=== PATIENT | female | born 1940 | race Caucasian/White ===

== ENCOUNTER 2017-05-30 09:44 | Emergency (ER) | payer MEDICARE, BC ==
[2017-05-30] MEDS ORDERED: TORAdol 30 mg Injection IV ONE (10:12)
[2017-05-30] MEDS ORDERED: VALIUM 10 MG/2 ML SYRINGE IV ONE (10:13)
--- NOTE | 2017-05-30 10:22 | ERPHSYRPT ---
- History of Present Illness Time Seen by Provider: 05/30/17 10:01 Source: patient Exam Limitations: no limitations Patient Subjective Stated Complaint: pt arrived per ambulance for chronic lower back. no injury, she got steriod shot wed, and states has not helped. Triage Nursing Assessment: pt alert, skin w/d/p,moaning out in pain when moves. resp easy. Physician History: Pt has been treated with chronic low back pain for years. She goes to a chiropractor and pain clinic as well. She fell in March, aggravated her chronic back pain. She was seen by her PCP 2 days ago, she was given steroid shots, also received massage treatment by her chiropractor 2 days ago, which made her symptoms worse, up to a point, that she was unable to walk with the pain last night. She also mentioned having pain across her chest off and on for the past weak, denies severe SOB, cough, fever, nausea, diaphoresis other complaints. She lives alone, her data warehouse developer visited her today, and called 911. Timing/Duration: constant, gradual onset Method of Injury: other (denies) Quality: sharp Back Pain Location: lumbar spine Severity of Pain-Max: severe Severity of Pain-Current: severe Modifying Factors: Improves With: movement Associated Symptoms: urinary incontinence, problems urinating, other (chronic mild leaking, no recent changes), No fever, No loss of bowel control, No constipation, No vomiting Previous symptoms: same symptoms as today, recently treated Allergies/Adverse Reactions: pregabalin [From Lyrica] Allergy (Severe, Verified 05/30/17 09:55) Difficulty Breathing states "out of it,like crazy" hydrocodone bitartrate [From Vicodin] Adverse Reaction (Mild, Verified 05/30/17 09:55) constipation Home Medications: Alendronate Sodium 70 mg [Fosamax 70 MG] 70 mg PO WEEKLY 05/15/15 [History ] Alprazolam [Alprazolam Odt] 0.5 mg PO DAILY 05/15/15 [History] Amiodarone HCl 200 mg PO DAILY 05/15/15 [History] Aspirin 81 gm Chew [Baby Aspirin 81 mg Chew] 81 mg PO DAILY 05/15/15 [ History] Calcium Carbonate/Vitamin D3 [Calcium 250+D Tablet] 1 ea PO DAILY 05/15/15 [ History] Cetirizine HCl [Zyrtec] 10 mg PO DAILY 05/15/15 [History] Clotrimazole [Clotrimazole 3] 1 ea TOP Q12H PRN PRN 05/15/15 [History] Esomeprazole Magnesium [Nexium] 40 mg PO DAILY 05/15/15 [History] Hydrocortisone/Iodoquinol/Aloe [Opnesdxgh-Oaxfadffww-Omat Sach] 1 ea TOP Q12H PRN PRN 05/15/15 [History] Multivitamin [Daily Multivitamin] 1 ea PO DAILY 05/15/15 [History] Omeprazole 20 MG [Prilosec 20 mg] 20 mg PO DAILY 05/15/15 [History] Pravastatin Sodium [Pravachol] 40 mg PO DAILY 05/15/15 [History] Vit A/Vit C/Vit E/Zinc/Copper [Preservision Areds Softgel] 1 ea PO BID 05/15/15 [History] Diltiazem HCl [Diltiazem ER] 100 mg PO DAILY 06/05/15 [History] Fluticasone Propionate [Flonase NASAL] 2 sprays IN DAILY 06/05/15 [History ] Mv-Mn/Iron/Folic Acid/Herb 190 [Vitamin D3 Complete Caplet] 2,000 mg PO DAILY [History] Sennosides [Senna Laxative] 1 tab PO DAILY 06/05/15 [History] Hx Influenza Vaccination/Date Given: Yes Hx Pneumococcal Vaccination/Date Given: Yes - Review of Systems Constitutional: No Symptoms Respiratory: No Cough, No Dyspnea Cardiac: Chest Pain, No Edema Abdominal/Gastrointestinal: No Symptoms Genitourinary Symptoms: Incontinence, Other (chronic, mild incontinance, wears depends) Musculoskeletal: Back Pain All Other Systems: Reviewed and Negative - Past Medical History Pertinent Past Medical History: No Neurological History: No Pertinent History ENT History: No Pertinent History Cardiac History: Other (atrial fibrillation, not on blood thinner) Respiratory History: Other Endocrine Medical History: No Pertinent History Musculoskeletal History: Arthritis, Degenerative Disk Disease GI Medical History: Irritable Bowel, Polyps History: Other Psycho-Social History: No Pertinent History Female Reproductive Disorders: No Pertinent History Other Medical History: states allergies,"over the counter stuff for that", states A-fib"States arthritis" - Past Surgical History Past Surgical History: Yes Neuro Surgical History: No Pertinent History Cardiac: Cardiac Catheterization Respiratory: No Pertinent History Gastrointestinal: Other Genitourinary: No Pertinent History Musculoskeletal: Orthopedic Surgery Female Surgical History: Hysterectomy Other Surgical History: derrek ankle fx, each with hdwe placed, colonoscopy with polypectomy, left knee replacement - Social History Smoking Status: Never smoker Exposure to second hand smoke: No Drug Use: none Patient Lives Alone: Yes - Female History Hx Last Menstrual Period: post Hx Now: No - Nursing Vital Signs Nursing Vital Signs: Initial Vital Signs Temperature 97.2 F 05/30/17 09:48 Pulse Rate 70 05/30/17 09:48 Respiratory Rate 18 05/30/17 09:48 Blood Pressure 180/83 05/30/17 09:48 O2 Sat by Pulse Oximetry 98 05/30/17 09:48 Pain Scale Pain Intensity [Back] 10 Pain Intensity 5 - Physical Exam General Appearance: no apparent distress Eye Exam: eyes nml inspection Ears, Nose, Throat Exam: normal ENT inspection Neck Exam: normal inspection, non-tender, supple Respiratory Exam: normal breath sounds, lungs clear, airway intact, No chest tenderness, No respiratory distress Cardiovascular Exam: regular rate/rhythm, normal heart sounds, normal peripheral pulses, No murmur Gastrointestinal Exam: soft, normal bowel sounds, No tenderness, No distention, No mass, No ecchymosis Back Exam: normal inspection, decreased range of motion, muscle spasm, other ( diffuse bilateral muscular tenderness, and spasms, more severe on the right side , staright leg rising negative bilat.), No CVA tenderness, No vertebral tenderness, No rash Extremity Exam: normal inspection, No calf tenderness Peripheral Pulses: dorsalis-pedis (R): 3+, dorsalis-pedis (L): 3+ Neurologic Exam: alert, oriented x 3, cooperative, normal mood/affect, abnormal gait, other (normal, equal reflexes), No motor deficits, No motor weakness Skin Exam: normal color, warm, dry, No rash Lymphatic Exam: No adenopathy SpO2 Interpretation: normal SpO2: 98 Oxygen Delivery: Room Air - Course Nursing assessment & vital signs reviewed: Yes EKG Interpreted by Me: RATE, Sinus Rhythm, NORMAL AXIS, Non-specific ST Changes - Radiology Exams Chest X-ray Interpretation: Reviewed by me, Other (new left base infiltrate/ atelectasis/effusion) L-Spine X-ray Interpretation: Reviewed by me, No Fracture, Other (remote appearing T11 and L3 endplate fractures, osteopenia, scoliosis, multilevel spondylosis) - CT Exams Chest CT Interpretation: Negative, Tele-radiologist Report, No PE, Other (scattered fibrosis,/scarring and left base compressive atelectasis secondary to hemidiaphragm elevation, remote T11 compression) Ordered Tests: Active Orders 24 hr Category Date Time Status Lending Consultant STAT Care 05/30/17 10:11 Active Clean Catch Urine Specimen STAT Care 05/30/17 10:12 Active EKG-ER Only STAT Care 05/30/17 10:10 Active IV Insertion STAT Care 05/30/17 10:10 Active Oxygen-ED Only VENTI-MASK 28% Care 05/30/17 10:10 Active Regular Diet Diet 05/30/17 Dinner Active CHEST 1 VIEW (PORTABLE) Stat Exams 05/30/17 10:11 Completed CHEST WITH CONTRAST [CT] Stat Exams 05/30/17 11:46 Completed LUMBAR LIMITED (2 OR 3 VIEWS) Stat Exams 05/30/17 10:12 Completed CBC W DIFF Stat Lab 05/30/17 10:30 Completed CK-Creatinine Phosphokinase Stat Lab 05/30/17 10:30 Completed CMP Stat Lab 05/30/17 10:30 Completed CULTURE,URINE Stat Lab 05/30/17 10:12 Received D-DIMER QUANTITATION Stat Lab 05/30/17 11:15 Completed NT PRO BNP Stat Lab 05/30/17 10:30 Completed PROTIME WITH INR Stat Lab 05/30/17 10:30 Completed PTT Stat Lab 05/30/17 10:30 Completed TROPONIN Q3H Lab 05/30/17 10:30 Completed TROPONIN Q3H Lab 05/30/17 13:15 Received TROPONIN Q3H Lab 05/30/17 16:15 Ordered TROPONIN Q3H Lab 05/30/17 19:15 Ordered TROPONIN Q3H Lab 05/30/17 22:15 Ordered UA W/ MICROSCOPIC Stat Lab 05/30/17 10:12 Completed Medication Summary Discontinued Medications Generic Name Dose Route Start Last Admin Trade Name Freq PRN Reason Stop Dose Admin Diazepam 2.5 mg 05/30/17 10:13 05/30/17 10:58 Valium 10 Mg/2 Ml Syringe IV 04/20/18 10:14 Not Given STAT ONE Ketorolac Tromethamine 30 mg 05/30/17 10:12 05/30/17 10:59 Toradol 30 Mg Injection IV 05/30/17 10:13 30 mg STAT ONE Administration Ketorolac Tromethamine Confirm 05/30/17 10:57 Toradol 30 Mg Injection Administered 05/30/17 10:58 Dose 30 mg .ROUTE .STK-MED ONE Ondansetron HCl 4 mg 05/30/17 12:07 05/30/17 12:12 Zofran 4 Mg/2 Ml Vial IV 05/30/17 12:08 4 mg STAT ONE Administration Ondansetron HCl Confirm 05/30/17 12:11 Zofran 4 Mg/2 Ml Vial Administered 05/30/17 12:12 Dose 4 mg .ROUTE .STK-MED ONE Orphenadrine Citrate 60 mg 05/30/17 10:59 05/30/17 11:01 Norflex 60 Mg/2 Ml IM 05/30/17 11:00 60 mg STAT ONE Administration Orphenadrine Citrate Confirm 05/30/17 10:59 Norflex 60 Mg/2 Ml Administered 05/30/17 11:00 Dose 60 mg .ROUTE .STK-MED ONE Lab/Rad Data: Laboratory Result Diagrams 05/30/17 10:30 05/30/17 10:30 Laboratory Results 05/30/17 05/30/17 05/30/17 Range/Units 11:15 10:30 10:30 WBC (4.0-10.5) K/mm3 RBC (4.1-5.4) M/mm3 Hgb (12.0-16.0) gm/dl Hct (35-47) % MCV (78-100) fl MCH (26-32) pg MCHC (32-36) g/dl RDW (11.5-14.0) % Plt Count (150-450) K/mm3 MPV (6-9.5) fl Gran % (36.0-66.0) % Eos # (Auto) (0-0.5) Absolute Lymphs (auto) (1.0-4.6) Absolute Monos (auto) (0.0-1.3) Lymphocytes % (24.0-44.0) % Monocytes % (0.0-12.0) % Eosinophils % (0.00-5.0) % Basophils % (0.0-0.4) % Absolute Granulocytes (1.4-6.9) Basophils # (0-0.4) PT 10.8 (9.95-12.35) SECONDS INR 0.97 (0.8-3.0) APTT 36.2 (25.3-37.0) SECONDS D-Dimer 1786.69 H* (215-500) ng/mL Sodium (137-145) mmol/L Potassium (3.5-5.1) mmol/L Chloride (98-107) mmol/L Carbon Dioxide (22-30) mmol/L Anion Gap (5-15) MEQ/L BUN (7-17) mg/dL Creatinine (0.52-1.04) mg/dL Estimated GFR ML/MIN Glucose (74-106) mg/dL Calcium (8.4-10.2) mg/dL Total Bilirubin (0.2-1.3) mg/dL AST (14-36) U/L ALT (0-35) U/L Alkaline Phosphatase (38-126) U/L Creatine Kinase (30-135) U/L Troponin I < 0.012 (0.000-0.034) ng/mL NT-Pro-B Natriuret Pep (0-1800) pg/mL Serum Total Protein (6.3-8.2) g/dL Albumin (3.5-5.0) g/dL Ur Collection Type Urine Color (YELLOW) Urine Appearance (CLEAR) Urine pH (5-6) Ur Specific [place] (1.005-1.025) Urine Protein (Negative) Urine Ketones (NEGATIVE) Urine Blood (0-5) Malik/ul Urine Nitrite (NEGATIVE) Urine Bilirubin (NEGATIVE) Urine Urobilinogen (0-1) mg/dL Ur Leukocyte Esterase (NEGATIVE) Urine Microscopic RBC (0-2) /HPF Urine Microscopic WBC (0-5) /HPF Ur Epithelial Cells (FEW) /HPF Urine Bacteria (NEGATIVE) /HPF Urine Culture Reflexed (NO) Urine Glucose (NEGATIVE) mg/dL Specimen Received 05/30/17 05/30/17 05/30/17 Range/Units 10:30 10:30 10:12 WBC 10.9 H (4.0-10.5) K/mm3 RBC 5.31 (4.1-5.4) M/mm3 Hgb 15.6 (12.0-16.0) gm/dl Hct 48.6 H (35-47) % MCV 91.5 (78-100) fl MCH 29.4 (26-32) pg MCHC 32.1 (32-36) g/dl RDW 14.9 H (11.5-14.0) % Plt Count 271 (150-450) K/mm3 MPV 9.6 H (6-9.5) fl Gran % 67.0 H (36.0-66.0) % Eos # (Auto) 0.14 (0-0.5) Absolute Lymphs (auto) 2.04 (1.0-4.6) Absolute Monos (auto) 1.37 H (0.0-1.3) Lymphocytes % 18.8 L (24.0-44.0) % Monocytes % 12.6 H (0.0-12.0) % Eosinophils % 1.3 (0.00-5.0) % Basophils % 0.3 (0.0-0.4) % Absolute Granulocytes 7.29 H (1.4-6.9) Basophils # 0.03 (0-0.4) PT (9.95-12.35) SECONDS INR (0.8-3.0) APTT (25.3-37.0) SECONDS D-Dimer (215-500) ng/mL Sodium 140 (137-145) mmol/L Potassium 5.2 H (3.5-5.1) mmol/L Chloride 103 (98-107) mmol/L Carbon Dioxide 28 (22-30) mmol/L Anion Gap 14.3 (5-15) MEQ/L BUN 29 H (7-17) mg/dL Creatinine 0.93 (0.52-1.04) mg/dL Estimated GFR > 60.0 ML/MIN Glucose 94 (74-106) mg/dL Calcium 9.2 (8.4-10.2) mg/dL Total Bilirubin 1.00 (0.2-1.3) mg/dL AST 53 H (14-36) U/L ALT 27 (0-35) U/L Alkaline Phosphatase 157 H (38-126) U/L Creatine Kinase 70 (30-135) U/L Troponin I (0.000-0.034) ng/mL NT-Pro-B Natriuret Pep 826 (0-1800) pg/mL Serum Total Protein 7.9 (6.3-8.2) g/dL Albumin 4.0 (3.5-5.0) g/dL Ur Collection Type CATH Urine Color LT.YELLOW (YELLOW) Urine Appearance CLOUDY (CLEAR) Urine pH 7.0 (5-6) Ur Specific [place] 1.010 (1.005-1.025) Urine Protein TRACE (Negative) Urine Ketones NEGATIVE (NEGATIVE) Urine Blood LARGE (0-5) Malik/ul Urine Nitrite NEGATIVE (NEGATIVE) Urine Bilirubin NEGATIVE (NEGATIVE) Urine Urobilinogen NORMAL (0-1) mg/dL Ur Leukocyte Esterase MODERATE (NEGATIVE) Urine Microscopic RBC >100 (0-2) /HPF Urine Microscopic WBC 10-15 (0-5) /HPF Ur Epithelial Cells RARE (FEW) /HPF Urine Bacteria MANY (NEGATIVE) /HPF Urine Culture Reflexed YES (NO) Urine Glucose NEGATIVE (NEGATIVE) mg/dL Specimen Received 05/30/17 1110 - Progress Progress: improved Progress Note: 05/30/17 14:18 Pt was informed about all test results, she was advised to be admitted for further treatment and evaluation for rehab. She understood, but declined, she wants to go home, she was seen by medical services manager, and arrangements were made for home rehab. treatment. She understood all risks involved in her decision, she is alert and oriented x4, mentally fully competent to make decisions for herself. She was started on [place] and advised to return if severe pain, vomiting, fever> 102 F, and follow up with her doctor next week. - Departure Time of Disposition: 14:21 Departure Disposition: AMA Clinical Impression: Back pain of lumbar region with sciatica UTI (urinary tract infection) Qualifiers: Urinary tract infection type: acute cystitis Hematuria presence: with hematuria Qualified Code(s): N30.01 - Acute cystitis with hematuria Condition: Stable Critical Care Time: No Referrals: AMEYA ALBA [COURTESY STAFF] - Additional Instructions: Rest x 3-4 days and drink plenty of fluids, return if severe pain, sudden leg weakness, numbness, or loss of bladder, bowel control, or vomiting, fever> 102 F , follow up with your doctor next week! Prescriptions: Sulfamethoxazole/Trimethoprim [Bactrim Ds Tablet] 1 each PO BID 7 Days #14 tablet
[2017-05-30 10:41] LABS: BASOPHIL % 0.3 % (0.0-0.4); Basophil (Absolute #) 0.03 (0-0.4); Eosinophil % 1.3 % (0.00-5.0); Eosinophil (Absolute #) 0.14 (0-0.5); Granulocyte Absolute (ANC) 7.29 (1.4-6.9); Hematocrit 48.6 % (35-47); Hemoglobin 15.6 gm/dl (12.0-16.0); Lymphocyte (Absolute #) 2.04 (1.0-4.6); Lymphocytes % 18.8 % (24.0-44.0); Mean Cell Volume 91.5 fl (78-100); Mean Corpuscular Hemoglobin 29.4 pg (26-32); Mean Corpuscular Hgb Concent. 32.1 g/dl (32-36); Mean Platelet Volume 9.6 fl (6-9.5); Monocyte (Absolute #) 1.37 (0.0-1.3); Monocytes % 12.6 % (0.0-12.0); Platelet Count 271 K/mm3 (150-450); Red Blood Count 5.31 M/mm3 (4.1-5.4); Red Cell Distribution Width 14.9 % (11.5-14.0); White Blood Count 10.9 K/mm3 (4.0-10.5)
[2017-05-30 10:53] LABS: INR 0.97 (0.8-3.0)
[2017-05-30 10:55] LABS: PTT 36.2 SECONDS (25.3-37.0)
[2017-05-30] MEDS ORDERED: TORAdol 30 mg Injection ONE (10:57)
[2017-05-30] MEDS ORDERED: Norflex 60 MG/2 ML ONE (10:59)
[2017-05-30] MEDS ORDERED: Norflex 60 MG/2 ML IM ONE (10:59)
[2017-05-30 11:00] LABS: ALKALINE PHOSPHATASE 157 U/L (38-126); ANION GAP 14.3 MEQ/L (5-15); BLOOD UREA NITROGEN 29 mg/dL (7-17); CHLORIDE 103 mmol/L (98-107); CK-Creatinine Phosphokinase 70 U/L (30-135); Calcium 9.2 mg/dL (8.4-10.2); Carbon Dioxide 28 mmol/L (22-30); Creatinine 1 0.93 mg/dL (0.52-1.04); Glucose 94 mg/dL (74-106); Potassium 5.2 mmol/L (3.5-5.1); SGOT/AST 53 U/L (14-36); SGPT/ALT 27 U/L (0-35); SODIUM 140 mmol/L (137-145); Total Protein 7.9 g/dL (6.3-8.2)
--- NOTE | 2017-05-30 11:06 | XRAY ---
Indication: Chest and low back pain. Comparison: March 31, 2006. Portable chest demonstrates new left lung base pleural-parenchymal opacity probably combination infiltrate/atelectasis/effusion. Right lung clear. Heart is not enlarged for AP portable technique. Vascularity normal. Bony thorax intact again with mild osteopenia and degenerative changes. Impression: New left base infiltrate/atelectasis/effusion. Correlate clinically.
[2017-05-30 11:08] LABS: NT PRO BNP 826 pg/mL (0-1800)
--- NOTE | 2017-05-30 11:08 | XRAY ---
Indication: Low back pain. No known injury. Comparison: October 27, 2005. 3 views of the lumbar spine again demonstrates age-related osteopenia and mild double curvature scoliosis. Progressive worsening multilevel degenerative spondylosis today greatest at the L1-L2 level. New remote-appearing superior L3 endplate fracture with approximately 50% height loss and new remote-appearing inferior T11 endplate fracture with approximately 25% height loss. Visualized soft tissues unremarkable. Impression: 1. Remote appearing T11 and L3 endplate fractures. 2. Again osteopenia, scoliosis, and progressive worsening multilevel degenerative spondylosis.
[2017-05-30 11:14] LABS: Appearance CLOUDY (CLEAR); Bilirubin NEGATIVE (NEGATIVE); Blood LARGE Ery/ul (0-5); Glucose NEGATIVE (NEGATIVE); Ketones NEGATIVE (NEGATIVE); Leukocyte Esterase MODERATE (NEGATIVE); Nitrite NEGATIVE (NEGATIVE); Protein,Urine Dip TRACE (Negative); Urobilinogen NORMAL mg/dL (0-1)
[2017-05-30 11:20] LABS: Bacteria MANY /HPF (NEGATIVE); Epithelial Cells RARE /HPF (FEW)
[2017-05-30] MEDS ORDERED: Zofran 4 MG/2 ML VIAL IV ONE (12:07)
[2017-05-30] MEDS ORDERED: Zofran 4 MG/2 ML VIAL ONE (12:11)
--- NOTE | 2017-05-30 13:24 | XRAY ---
Indication: Back pain. Elevated d-dimer. Multiple contiguous axial images obtained through the chest using 80 cc Isovue 370 contrast and PE protocol. Comparison: None There is satisfactory opacification of the pulmonary arteries to include the lobar and segmental branches. No filling defect or pulmonary embolus. Heart is not enlarged. Aorta minimally atherosclerotic without aneurysm/dissection. No pathologic mediastinal/hilar lymphadenopathy. Small hiatal hernia. Examination of the lung parenchyma demonstrates scattered bilateral fibrosis/scarring greatest near the lung bases. Left hemidiaphragm elevation with left base compressive atelectasis. No suspicious pulmonary mass, infiltrate, or effusion. Bony thorax intact with mild degenerative changes throughout the spine. Remote appearing inferior T11 endplate fracture with approximately 25% height loss. Limited upper abdomen demonstrates mild diffuse fatty liver. Impression: 1. Negative pulmonary embolus. 2. Scattered fibrosis/scarring and left base compressive atelectasis secondary to hemidiaphragm elevation. 3. No acute cardiopulmonary abnormalities. 4. Small hiatal hernia, fatty liver, and remote T11 fracture. CTDI 20.83
[2017-05-30 13:42] VITALS: BP 121/95; PULSE 68
[2017-05-30] MEDS ORDERED: BACTRIM DS TABLET PO STA (14:17)
[2017-05-30 14:18] VITALS: O2SAT 98
[2017-05-30] MEDS ORDERED: BACTRIM DS TABLET PO ONE (14:19)
== END 2017-05-30 14:50 | disposition home or self-care (01) ==
LOC: ED 09:44
DX: M54.40 Lumbago with sciatica, unspecified side (principal); N30.01 Acute cystitis with hematuria
CPT/HCPCS: 36000; 36415; 71045; 71260; 72100; 80053; 81000; 82550; 83880; 84484; 85025; 85379; 85610; 85730; 87077; 87086; 87186; 93005; 93041; 96372; 96374; 96375; 99284; 99285; J1885; J2360; J2405; A9270-GY

== ENCOUNTER 2017-06-01 10:19 | Inpatient (IN) | payer MEDICARE, BC ==
[2017-06-01] MEDS ORDERED: Zofran 4 MG/2 ML VIAL IV ONE (10:35)
[2017-06-01] MEDS ORDERED: TORAdol 30 mg Injection IV ONE (10:35)
[2017-06-01] MEDS ORDERED: MORPHINE SULFATE 2 MG INJ IV ONE (10:35)
[2017-06-01] MEDS ORDERED: Sodium Chloride 0.9% 1000 ML 1,000 ML IV SCH (10:45)
[2017-06-01] MEDS ORDERED: Zofran 4 MG/2 ML VIAL ONE (10:48)
[2017-06-01] MEDS ORDERED: MORPHINE SULFATE 2 MG INJ ONE (10:48)
[2017-06-01] MEDS ORDERED: TORAdol 30 mg Injection ONE (10:48)
[2017-06-01 10:49] LABS: BASOPHIL % 0.2 % (0.0-0.4); Basophil (Absolute #) 0.02 (0-0.4); Eosinophil % 1.8 % (0.00-5.0); Eosinophil (Absolute #) 0.19 (0-0.5); Granulocyte Absolute (ANC) 7.36 (1.4-6.9); Granulocytes % 69.9 % (36.0-66.0); Hematocrit 48.4 % (35-47); Hemoglobin 15.6 gm/dl (12.0-16.0); Lymphocyte (Absolute #) 1.72 (1.0-4.6); Lymphocytes % 16.3 % (24.0-44.0); Mean Cell Volume 91.7 fl (78-100); Mean Corpuscular Hemoglobin 29.5 pg (26-32); Mean Corpuscular Hgb Concent. 32.2 g/dl (32-36); Mean Platelet Volume 9.6 fl (6-9.5); Monocyte (Absolute #) 1.24 (0.0-1.3); Monocytes % 11.8 % (0.0-12.0); Platelet Count 271 K/mm3 (150-450); Red Blood Count 5.28 M/mm3 (4.1-5.4); Red Cell Distribution Width 15.2 % (11.5-14.0); White Blood Count 10.5 K/mm3 (4.0-10.5)
--- NOTE | 2017-06-01 10:51 | ERPHSYRPT ---
- History of Present Illness Time Seen by Provider: 06/01/17 10:26 Source: patient Exam Limitations: no limitations Patient Subjective Stated Complaint: rosmery presented to er on friday with chronic back pain difficulty moving self around, also diagnosed with UTI, left hospital AMA because she has puppy at home she didnt want to leave with no food or water Triage Nursing Assessment: pt alert and orientedx3, lung sounds clear, patient has difficulty moving self around , unable to ambulate by self, incontinent of urine and fesces, patient states she gets around house a little bit but unable to get farther than bed or chair, gait is unsteady. lips dry , skin warm dry and intact Physician History: Pt was seen here with the same problem, chronic low back pain exacerbation after receiving steroid shots by her doctor 2 days prior. She was diagnosed with UTI, started on PO antibiotic. She was advised to be admitted, but refused , and left AMA, she states, she has been in her bed ever since she left, did not eat anything today yet. She denies falls, injury, other complaints, no abdominal pain, vomiting, or fever. She is alert and oriented x4. Timing/Duration: day(s) (4) Method of Injury: other (denies) Quality: sharp Back Pain Location: lumbar spine Severity of Pain-Max: severe Severity of Pain-Current: moderate Modifying Factors: Improves With: movement Associated Symptoms: denies symptoms Previous symptoms: same symptoms as today Allergies/Adverse Reactions: pregabalin [From Lyrica] Allergy (Severe, Verified 06/01/17 13:28) Difficulty Breathing states "out of it,like crazy" hydrocodone bitartrate [From Vicodin] Adverse Reaction (Mild, Verified 06/01/17 13:28) constipation tramadol Adverse Reaction (Verified 06/01/17 13:29) confusion/ "goofy" Home Medications: Alprazolam [Alprazolam Odt] 0.5 mg PO HS 05/15/15 [History] Amiodarone HCl 200 mg PO DAILY 05/15/15 [History] Aspirin 81 gm Chew [Baby Aspirin 81 mg Chew] 81 mg PO DAILY 05/15/15 [ History] Calcium Carbonate/Vitamin D3 [Calcium 250+D Tablet] 1 ea PO DAILY 05/15/15 [ History] Clotrimazole [Clotrimazole 3] 1 ea TOP Q12H PRN PRN 05/15/15 [History] Hydrocortisone/Iodoquinol/Aloe [Vbnvporjc-Etmpbjccex-Muga Sach] 1 ea TOP Q12H PRN PRN 05/15/15 [History] Multivitamin [Daily Multivitamin] 1 ea PO DAILY 05/15/15 [History] Pravastatin Sodium [Pravachol] 40 mg PO HS 05/15/15 [History] Fluticasone Propionate [Flonase NASAL] 2 sprays IN DAILY 06/05/15 [History ] Diltiazem HCl [Cartia Xt] 120 mg PO DAILY 06/01/17 [History] Fexofenadine HCl 180 mg PO DAILY PRN PRN 06/01/17 [History] Lidocaine [Lidocaine] 5 adh.patch HS 06/01/17 [History] Loratadine [Loratadine] 10 mg PO DAILY 06/01/17 [History] Hx Tetanus, Diphtheria Vaccination/Date Given: Yes Hx Influenza Vaccination/Date Given: Yes Hx Pneumococcal Vaccination/Date Given: Yes Immunizations Up to Date: Yes - Review of Systems Constitutional: No Symptoms Musculoskeletal: Back Pain All Other Systems: Reviewed and Negative - Past Medical History Pertinent Past Medical History: No Neurological History: No Pertinent History ENT History: No Pertinent History Cardiac History: Other Respiratory History: Other Endocrine Medical History: No Pertinent History Musculoskeletal History: Arthritis, Degenerative Disk Disease GI Medical History: Irritable Bowel, Polyps History: Other Psycho-Social History: No Pertinent History Female Reproductive Disorders: No Pertinent History Other Medical History: states allergies,"over the counter stuff for that", states A-fib"States arthritis" - Past Surgical History Past Surgical History: Yes Neuro Surgical History: No Pertinent History Cardiac: Cardiac Catheterization Respiratory: No Pertinent History Gastrointestinal: Other Genitourinary: No Pertinent History Musculoskeletal: Orthopedic Surgery Female Surgical History: Hysterectomy Other Surgical History: derrek ankle fx, each with hdwe placed, colonoscopy with polypectomy, left knee replacement - Social History Smoking Status: Never smoker Exposure to second hand smoke: No Drug Use: none Patient Lives Alone: Yes - Female History Hx Now: No - Nursing Vital Signs Nursing Vital Signs: Initial Vital Signs Temperature 97.7 F 06/01/17 10:20 Pulse Rate 76 06/01/17 10:20 Respiratory Rate 18 06/01/17 10:20 Blood Pressure 153/83 06/01/17 10:20 O2 Sat by Pulse Oximetry 98 06/01/17 10:20 Pain Scale Pain Intensity [Lower 10 Posterior Back] Pain Intensity 10 - Physical Exam General Appearance: no apparent distress Eye Exam: eyes nml inspection Ears, Nose, Throat Exam: normal ENT inspection, pharynx normal Neck Exam: normal inspection, non-tender, supple Respiratory Exam: normal breath sounds, lungs clear, airway intact, No chest tenderness, No respiratory distress Cardiovascular Exam: regular rate/rhythm, normal heart sounds, normal peripheral pulses, No murmur Gastrointestinal Exam: soft, normal bowel sounds, No tenderness, No distention, No mass, No guarding Back Exam: normal inspection, other (diffuse, bilateral paralumbar, muscular vtenderness, no discoloration, swelling, or bruises.), No CVA tenderness, No vertebral tenderness, No rash Extremity Exam: normal inspection, other (straight leg raising negative bilat.) , No calf tenderness, No pedal edema Peripheral Pulses: dorsalis-pedis (R): 2+, dorsalis-pedis (L): 2+ Neurologic Exam: alert, oriented x 3, cooperative, normal mood/affect, abnormal gait, other (DTR equal (patellar and ankle)), No motor deficits Skin Exam: normal color, warm, dry, No rash SpO2 Interpretation: normal SpO2: 98 Oxygen Delivery: Room Air - Course Nursing assessment & vital signs reviewed: Yes Ordered Tests: Active Orders 24 hr Category Date Time Status Cardiac Diet Diet 06/01/17 Dinner Active BMP AM.LAB Lab 06/02/17 05:35 Completed CBC W DIFF AM.LAB Lab 06/02/17 05:35 Completed Medication Summary Generic Name Dose Route Start Last Admin Trade Name Freq PRN Reason Stop Dose Admin Alprazolam 0.5 mg 06/01/17 22:00 06/01/17 21:03 Xanax 0.5 Mg PO 07/01/17 21:59 0.5 mg HS HANSA Administration Amiodarone HCl 200 mg 06/01/17 18:00 06/02/17 09:39 Cordarone 200 Mg PO 07/01/17 17:59 200 mg DAILY HANSA Administration Aspirin 81 mg 06/02/17 10:00 06/02/17 09:39 Ecotrin 81 Mg PO 07/02/17 09:59 81 mg DAILY HANSA Administration Bisacodyl 10 mg 06/02/17 09:06 Dulcolax 10 Mg Supp MS 07/02/17 09:05 DAILY PRN PRN CONSTIPATION Clotrimazole 0 gm 06/01/17 17:29 Lotrimin Cream 30 Gm TOP 07/01/17 17:28 Q12H PRN PRN YEAST INFECTION Cyclobenzaprine HCl 5 mg 06/02/17 10:00 06/02/17 09:40 Cyclobenzaprine 10 Mg PO 07/02/17 09:59 5 mg TID HANSA Administration Diltiazem HCl 120 mg 06/01/17 17:30 06/02/17 09:39 Cardizem Cd 120 Mg PO 07/01/17 17:29 120 mg DAILY HANSA Administration Docusate Sodium 100 mg 06/02/17 10:00 06/02/17 09:39 Colace 100 Mg PO 07/02/17 09:59 100 mg BID HANSA Administration Enoxaparin Sodium 40 mg 06/01/17 20:00 06/01/17 21:03 Enoxaparin Sodium SQ 07/01/17 19:59 40 mg Q24H HANSA Administration Fluticasone Propionate 0 gm 06/02/17 10:00 06/02/17 09:39 Flonase Nasal NS 07/02/17 09:59 16 gm DAILY HANSA Administration Sodium Chloride 1,000 mls @ 100 mls/hr 06/01/17 12:00 06/02/17 07:05 Sodium Chloride 0.9% 1000 Ml IV 07/01/17 11:59 100 mls/hr .Q10H HANSA Administration Ceftriaxone Sodium/Dextrose 1 g in 50 mls @ 100 mls/hr 06/02/17 10:00 09:39 Rocephin 1 Gm-D5w 50 Ml Bag IV 07/02/17 09:59 100 mls/hr Q24H10 HANSA Administration Lidocaine 1 patch 06/01/17 22:00 06/01/17 21:02 Lidoderm Patch 5% TOP 07/01/17 21:59 1 patch HS HANSA Administration Loratadine 10 mg 06/02/17 10:00 06/02/17 09:39 Claritin 10 Mg PO 07/02/17 09:59 10 mg DAILY HANSA Administration Morphine Sulfate 2 mg 06/01/17 11:57 06/02/17 03:34 Morphine Sulfate 2 Mg Inj IV 06/06/17 11:56 2 mg Q4H PRN PRN Administration PAIN Ondansetron HCl 4 mg 06/01/17 11:57 Zofran 4 Mg/2 Ml Vial IV 07/01/17 11:56 Q6H PRN PRN NAUSEA/VOMITING Oxycodone/Acetaminophen 2 tab 06/02/17 13:32 Oxycodone-Acetaminophen 10-325 PO 06/07/17 13:31 Q4H PRN PRN PAIN Polyethylene Glycol 17 gm 06/02/17 10:00 06/02/17 09:40 Miralax Powder 17gm Packet PO 07/02/17 09:59 17 gm DAILY HANSA Administration Simvastatin 40 mg 06/01/17 22:00 06/01/17 21:03 Zocor 20mg PO 07/01/17 21:59 40 mg HS HANSA Administration Discontinued Medications Generic Name Dose Route Start Last Admin Trade Name Freq PRN Reason Stop Dose Admin Sodium Chloride 1,000 mls @ 100 mls/hr 06/01/17 10:45 06/01/17 10:52 Sodium Chloride 0.9% 1000 Ml IV 07/01/17 10:44 100 mls/hr .Q10H HANSA Administration Ceftriaxone Sodium/Dextrose 1 g in 50 mls @ 100 mls/hr 06/01/17 11:52 12:06 Rocephin 1 Gm-D5w 50 Ml Bag IV 06/01/17 12:21 100 mls/hr STAT STA Administration Ceftriaxone Sodium/Dextrose Confirm 06/01/17 12:03 Rocephin 1 Gm-D5w 50 Ml Bag Administered 06/01/17 12:04 Dose 1 g in 50 mls @ ud IV .STK-MED ONE Ketorolac Tromethamine 30 mg 06/01/17 10:35 06/01/17 10:53 Toradol 30 Mg Injection IV 06/01/17 10:36 30 mg STAT ONE Administration Ketorolac Tromethamine Confirm 06/01/17 10:48 Toradol 30 Mg Injection Administered 06/01/17 10:49 Dose 30 mg .ROUTE .STK-MED ONE Morphine Sulfate 2 mg 06/01/17 10:35 06/01/17 10:52 Morphine Sulfate 2 Mg Inj IV 06/01/17 10:36 2 mg STAT ONE Administration Morphine Sulfate Confirm 06/01/17 10:48 Morphine Sulfate 2 Mg Inj Administered 06/01/17 10:49 Dose 2 mg .ROUTE .STK-MED ONE Ondansetron HCl 4 mg 06/01/17 10:35 06/01/17 10:53 Zofran 4 Mg/2 Ml Vial IV 06/01/17 10:36 4 mg STAT ONE Administration Ondansetron HCl Confirm 06/01/17 10:48 Zofran 4 Mg/2 Ml Vial Administered 06/01/17 10:49 Dose 4 mg .ROUTE .STK-MED ONE Oxycodone/Acetaminophen 1 tab 06/02/17 09:06 06/02/17 09:40 Oxycodone-Acetaminophen 10-325 PO 06/07/17 09:05 1 tab Q4H PRN PRN Administration PAIN Lab/Rad Data: Laboratory Result Diagrams 06/01/17 10:40 06/01/17 10:40 Laboratory Results 06/01/17 06/01/17 06/01/17 Range/Units 11:20 10:40 10:40 WBC 10.5 (4.0-10.5) K/mm3 RBC 5.28 (4.1-5.4) M/mm3 Hgb 15.6 (12.0-16.0) gm/dl Hct 48.4 H (35-47) % MCV 91.7 (78-100) fl MCH 29.5 (26-32) pg MCHC 32.2 (32-36) g/dl RDW 15.2 H (11.5-14.0) % Plt Count 271 (150-450) K/mm3 MPV 9.6 H (6-9.5) fl Gran % 69.9 H (36.0-66.0) % Eos # (Auto) 0.19 (0-0.5) Absolute Lymphs (auto) 1.72 (1.0-4.6) Absolute Monos (auto) 1.24 (0.0-1.3) Lymphocytes % 16.3 L (24.0-44.0) % Monocytes % 11.8 (0.0-12.0) % Eosinophils % 1.8 (0.00-5.0) % Basophils % 0.2 (0.0-0.4) % Absolute Granulocytes 7.36 H (1.4-6.9) Basophils # 0.02 (0-0.4) Sodium 140 (137-145) mmol/L Potassium 4.7 (3.5-5.1) mmol/L Chloride 103 (98-107) mmol/L Carbon Dioxide 29 (22-30) mmol/L Anion Gap 13.0 (5-15) MEQ/L BUN 44 H (7-17) mg/dL Creatinine 1.08 H (0.52-1.04) mg/dL Estimated GFR 52.0 ML/MIN Glucose 109 H (74-106) mg/dL Calcium 8.8 (8.4-10.2) mg/dL Ur Collection Type CATH Urine Color YELLOW (YELLOW) Urine Appearance CLEAR (CLEAR) Urine pH 5.0 (5-6) Ur Specific Girard 1.025 (1.005-1.025) Urine Protein TRACE (Negative) Urine Ketones NEGATIVE (NEGATIVE) Urine Blood 250 (0-5) Malik/ul Urine Nitrite NEGATIVE (NEGATIVE) Urine Bilirubin NEGATIVE (NEGATIVE) Urine Urobilinogen NORMAL (0-1) mg/dL Ur Leukocyte Esterase TRACE (NEGATIVE) Urine Microscopic RBC 25-50 (0-2) /HPF Urine Microscopic WBC 2-5 (0-5) /HPF Ur Epithelial Cells FEW (FEW) /HPF Urine Bacteria FEW (NEGATIVE) /HPF Hyaline Casts 2-5 (0-2) /LPF Urine Mucus SLIGHT (NEGATIVE) /HPF Urine Culture Reflexed YES (NO) Urine Glucose NEGATIVE (NEGATIVE) mg/dL Specimen Received 1120 06/01/17 - Progress Progress: improved Progress Note: 06/02/17 13:48 Improved, discussed with Dr Trejo, agreed to admit her as regular admission. Patient agreed. Discussed with Dr.: Maya Will see patient in: hospital (full admit) - Departure Time of Disposition: 13:49 Departure Disposition: In-patient Admission Clinical Impression: Dehydration Back pain Qualifiers: Back pain location: low back pain Chronicity: chronic Back pain laterality: bilateral Sciatica presence: without sciatica Qualified Code(s): M54.5 - Low back pain; G89.29 - Other chronic pain; G89.29 - Other chronic pain UTI (urinary tract infection) Qualifiers: Urinary tract infection type: acute cystitis Hematuria presence: with hematuria Qualified Code(s): N30.01 - Acute cystitis with hematuria Condition: Stable Critical Care Time: No
[2017-06-01 11:02] LABS: Calcium 8.8 mg/dL (8.4-10.2); Creatinine 1 1.08 mg/dL (0.52-1.04); Potassium 4.7 mmol/L (3.5-5.1)
[2017-06-01 11:23] LABS: Appearance CLEAR (CLEAR); Bilirubin NEGATIVE (NEGATIVE); Blood 250 Ery/ul (0-5); Glucose NEGATIVE (NEGATIVE); Ketones NEGATIVE (NEGATIVE); Leukocyte Esterase TRACE (NEGATIVE); Nitrite NEGATIVE (NEGATIVE); Protein,Urine Dip TRACE (Negative); Specific Gravity 1.025 (1.005-1.025); Urobilinogen NORMAL mg/dL (0-1)
[2017-06-01 11:35] LABS: Bacteria FEW /HPF (NEGATIVE); Epithelial Cells FEW /HPF (FEW); Mucus SLIGHT /HPF (NEGATIVE)
[2017-06-01] MEDS ORDERED: ROCEPHIN 1 Gm-D5w 50 ml Bag** 1 G/50 ML IVPB IV STA (11:52)
[2017-06-01] MEDS ORDERED: MORPHINE SULFATE 2 MG INJ IV PRN (11:57)
[2017-06-01] MEDS ORDERED: Zofran 4 MG/2 ML VIAL IV PRN (11:57)
[2017-06-01] MEDS ORDERED: ROCEPHIN 1 Gm-D5w 50 ml Bag** 1 G/50 ML IVPB IV ONE (12:03)
[2017-06-01] MEDS ORDERED: CLOTRIMAZOLE TOP PRN (17:13)
[2017-06-01] MEDS ORDERED: LOTRIMIN CREAM 30 GM TOP PRN (17:29)
[2017-06-01] MEDS: Cordarone 200 MG PO SCH (18:16)
[2017-06-01] MEDS: Cardizem CD 120 MG PO SCH (18:16)
[2017-06-01] MEDS: Lidoderm Patch 5% TOP SCH (21:02)
[2017-06-01] MEDS: ZOCOR 20MG PO SCH (21:03)
[2017-06-01] MEDS: ENOXAPARIN SODIUM SQ SCH (21:03)
[2017-06-01] MEDS: xanAX 0.5 MG PO SCH (21:03)
[2017-06-01] MEDS: Sodium Chloride 0.9% 1000 ML 1,000 ML IV SCH (21:13)
[2017-06-01] MEDS ORDERED: ALPRAZOLAM 0.5 MG PO SCH (22:00)
[2017-06-01] MEDS ORDERED: NON-FORMULARY ITEM (Pravastatin Sodium [Pravachol] 40 MG) PO SCH (22:00)
[2017-06-02 05:52] LABS: BASOPHIL % 0.6 % (0.0-0.4); Basophil (Absolute #) 0.04 (0-0.4); Eosinophil % 5.5 % (0.00-5.0); Eosinophil (Absolute #) 0.36 (0-0.5); Granulocyte Absolute (ANC) 4.17 (1.4-6.9); Granulocytes % 63.9 % (36.0-66.0); Hematocrit 42.6 % (35-47); Hemoglobin 13.5 gm/dl (12.0-16.0); Lymphocyte (Absolute #) 1.18 (1.0-4.6); Lymphocytes % 18.1 % (24.0-44.0); Mean Cell Volume 92.4 fl (78-100); Mean Corpuscular Hemoglobin 29.3 pg (26-32); Mean Corpuscular Hgb Concent. 31.7 g/dl (32-36); Mean Platelet Volume 9.7 fl (6-9.5); Monocyte (Absolute #) 0.78 (0.0-1.3); Monocytes % 11.9 % (0.0-12.0); Platelet Count 228 K/mm3 (150-450); Red Blood Count 4.61 M/mm3 (4.1-5.4); White Blood Count 6.5 K/mm3 (4.0-10.5)
[2017-06-02 06:14] LABS: ANION GAP 10.8 MEQ/L (5-15); Calcium 8.2 mg/dL (8.4-10.2); Creatinine 1 1.22 mg/dL (0.52-1.04); Potassium 4.6 mmol/L (3.5-5.1)
[2017-06-02] MEDS: Sodium Chloride 0.9% 1000 ML 1,000 ML IV SCH ×2 (07:05→18:39)
[2017-06-02] MEDS ORDERED: OXYCODONE-ACETAMINOPHEN 10-325 PO PRN ×2 (09:06→13:32)
[2017-06-02] MEDS ORDERED: Dulcolax 10 MG SUPP PR PRN (09:06)
--- NOTE | 2017-06-02 09:13 | PCM.HP ---
History of Present Illness - Chief Complaint Chief Complaint: UTI/Dehydration History of Present Illness: is a 77 year old female pt of Dr. Barrett with hx back pain who came to ER with intractable pain last night. She had been in bed unable to move (including soiling herself in bed, per ER note) for the past 2 days. Pt admits to being unable to get up during that time. She is having pain in the lower back, around L3-L5, 10/10. Denies paresthesias. Has been constipated. incontinent of urine. She apparently had gone to the doctor recently, was diagnosed with UTI and placed on antibiotics. UA in ER showed 25-50 RBC and 2-5 WBC, few epithelial cells. She has a history of back pain back to 2010. She denies any specific injury. She was seeing Dr. Moran' [employer], but last saw him Sep 2016. Has an appointment there June 10. - Review of Systems Constitutional: Weakness Cardiac: Chest Pain (after fall 2 mo ago, worse with eating; burning pain) Abdominal/Gastrointestinal: Constipation Musculoskeletal: Back Pain, Joint Pain (Pain proximal lateral thigh) Skin: Rash (genital area, "gaulding") Psychological: Depression Medications & Allergies Home Medications: Home Medication List Alprazolam [Alprazolam Odt] 0.5 mg PO HS 05/15/15 [History Confirmed 06/01/17] Amiodarone HCl 200 mg PO DAILY 05/15/15 [History Confirmed 06/01/17] Aspirin 81 gm Chew [Baby Aspirin 81 mg Chew] 81 mg PO DAILY 05/15/15 [ History Confirmed 06/01/17] Calcium Carbonate/Vitamin D3 [Calcium 250+D Tablet] 1 ea PO DAILY 05/15/15 [ History Confirmed 06/01/17] Clotrimazole [Clotrimazole 3] 1 ea TOP Q12H PRN PRN 05/15/15 [History Confirmed 06/01/17] Hydrocortisone/Iodoquinol/Aloe [Qrubhgzae-Xnaxaxgwhc-Xvyn Sach] 1 ea TOP Q12H PRN PRN 05/15/15 [History Confirmed 06/01/17] Multivitamin [Daily Multivitamin] 1 ea PO DAILY 05/15/15 [History Confirmed ] Pravastatin Sodium [Pravachol] 40 mg PO HS 05/15/15 [History Confirmed 06/01/17] Fluticasone Propionate [Flonase NASAL] 2 sprays IN DAILY 06/05/15 [ History Confirmed 06/01/17] Diltiazem HCl [Cartia Xt] 120 mg PO DAILY 06/01/17 [History Confirmed 06/01/17] Fexofenadine HCl 180 mg PO DAILY PRN PRN 06/01/17 [History Confirmed 06/01/17] Lidocaine [Lidocaine] 5 adh.patch HS 06/01/17 [History Confirmed 06/01/17] Loratadine [Loratadine] 10 mg PO DAILY 06/01/17 [History Confirmed 06/01/17] Allergies/Adverse Reactions: Allergies Allergy/AdvReac Type Severity Reaction Status Date / Time pregabalin [From Lyrica] Allergy Severe Difficulty Verified 06/01/17 13:28 Breathing hydrocodone bitartrate AdvReac Mild Verified 06/01/17 13:28 [From Vicodin] tramadol AdvReac Verified 06/01/17 13:29 - Past Medical History Past Medical History: No Neurological History: No Pertinent History ENT History: No Pertinent History Cardiac History: Congestive Heart Failure, Hypertension, Other Respiratory History: Other Endocrine Medical History: No Pertinent History Musculoskelatal History: Arthritis, Degenerative Disk Disease GI Medical History: Irritable Bowel, Polyps History: Other Pyscho-Social History: No Pertinent History Reproductive Disorders: No Pertinent History Comment: states allergies,"over the counter stuff for that",states A-fib"States arthritis" - Female History Are you now?: No - Past Surgical History Past Surgical History: Yes Neuro Surgical History: No Pertinent History Cardiac History: Cardiac Catheterization Respiratory Surgery: No Pertinent History GI Surgical History: Other Genitourinary Surgical Hx: No Pertinent History Musculskeletal Surgical Hx: Orthopedic Surgery Female Surgical History: Hysterectomy Other Surgical History: derrek ankle fx,,2006 each with hdwe placed, colonoscopy with polypectomy, left knee replacement, 2018 "droopy" eye surgery. - Social History Smoking Status: Never smoker Exposure to second hand smoke: No Alcohol: None Drug Use: none - Physical Exam Vital Signs: Vital Signs - 24 hr Temp Pulse Resp BP Pulse Ox 06/02/17 07:20 98.4 F 73 16 141/66 93 L 06/02/17 04:15 98.5 F 69 18 140/60 95 06/01/17 23:33 98.4 F 72 18 115/65 95 06/01/17 19:47 98.0 F 74 18 132/68 95 06/01/17 16:00 98.5 F 73 16 124/70 94 L 06/01/17 13:54 98.6 F 82 16 151/82 97 06/01/17 13:13 98.6 F 82 16 151/82 97 06/01/17 13:00 98.6 F 82 151/82 06/01/17 11:20 98.6 F 82 16 151/82 97 06/01/17 10:56 72 16 164/84 98 06/01/17 10:53 98 06/01/17 10:20 97.7 F 76 18 153/83 98 General Appearance: moderate distress (worse with moving), alert Neurologic Exam: oriented x 3, cooperative Eye Exam: eyes nml inspection Ears, Nose, Throat Exam: moist mucous membranes Neck Exam: normal inspection, non-tender, No lymphadenopathy Respiratory Exam: normal breath sounds, lungs clear, No crackles/rales, No rhonchi, No wheezing Cardiovascular Exam: regular rate/rhythm, normal heart sounds, No murmur Back Exam: normal inspection, other (lidoderm patch in place lower back. spine nttp. some ttp R lumbar paraspinal muscles on R, approx L3-L4.) Extremity Exam: normal inspection, other (lat to R greater trochanter nttp), No pedal edema, No swelling Skin Exam: normal color, warm, dry, No rash Results - Labs Lab/Micro Results: Lab Results-Last 24 Hours 06/02/17 06/02/17 Range/Units 05:35 05:35 WBC 6.5 (4.0-10.5) K/mm3 RBC 4.61 (4.1-5.4) M/mm3 Hgb 13.5 (12.0-16.0) gm/dl Hct 42.6 (35-47) % MCV 92.4 (78-100) fl MCH 29.3 (26-32) pg MCHC 31.7 L (32-36) g/dl RDW 15.0 H (11.5-14.0) % Plt Count 228 (150-450) K/mm3 MPV 9.7 H (6-9.5) fl Gran % 63.9 (36.0-66.0) % Eos # (Auto) 0.36 (0-0.5) Absolute Lymphs (auto) 1.18 (1.0-4.6) Absolute Monos (auto) 0.78 (0.0-1.3) Lymphocytes % 18.1 L (24.0-44.0) % Monocytes % 11.9 (0.0-12.0) % Eosinophils % 5.5 H (0.00-5.0) % Basophils % 0.6 (0.0-0.4) % Absolute Granulocytes 4.17 (1.4-6.9) Basophils # 0.04 (0-0.4) Sodium 139 (137-145) mmol/L Potassium 4.6 (3.5-5.1) mmol/L Chloride 106 (98-107) mmol/L Carbon Dioxide 27 (22-30) mmol/L Anion Gap 10.8 (5-15) MEQ/L BUN 35 H (7-17) mg/dL Creatinine 1.22 H (0.52-1.04) mg/dL Estimated GFR 45.2 ML/MIN Glucose 95 (74-106) mg/dL Calcium 8.2 L (8.4-10.2) mg/dL - Radiology Impressions Radiology Exams & Impressions: Radiology Procedures Category Date Time Status MRI L-SPINE WITHOUT CONTRAST [MRI] Routine Exams 06/02/17 09:02 Ordered Assessment/Plan (1) Back pain of lumbar region with sciatica Current Visit: No Status: Acute Assessment & Plan: Back pain is intractable. Will try adding percocet; I addressed her fear of constipation with opiates. MRI today lumbar spine. Code(s): M54.40 - LUMBAGO WITH SCIATICA, UNSPECIFIED SIDE (2) UTI (urinary tract infection) Current Visit: No Status: Acute Qualifiers: Urinary tract infection type: acute cystitis Hematuria presence: with hematuria Qualified Code(s): N30.01 - Acute cystitis with hematuria Assessment & Plan: On IV rocephin. Was partially treated. Ucx pending. Code(s): N39.0 - URINARY TRACT INFECTION, SITE NOT SPECIFIED (3) Weakness Current Visit: Yes Status: Acute Assessment & Plan: Will need PT when she can move a little better. If persistent may need rehab stay. Code(s): R53.1 - WEAKNESS (4) Abnormal gait Current Visit: Yes Status: Acute Assessment & Plan: Pt likely unable to get out of bed currently, but will consult PT. Code(s): R26.9 - UNSPECIFIED ABNORMALITIES OF GAIT AND MOBILITY
[2017-06-02] MEDS: Flonase NASAL NS SCH (09:39)
[2017-06-02] MEDS: Colace 100 MG PO SCH ×2 (09:39→21:28)
[2017-06-02] MEDS: CLARITIN 10 MG PO SCH (09:39)
[2017-06-02] MEDS: ECOTRIN 81 MG PO SCH (09:39)
[2017-06-02] MEDS: Cordarone 200 MG PO SCH (09:39)
[2017-06-02] MEDS: Cardizem CD 120 MG PO SCH (09:39)
[2017-06-02] MEDS: ROCEPHIN 1 Gm-D5w 50 ml Bag** 1 G/50 ML IVPB IV SCH (09:39)
[2017-06-02] MEDS: Miralax Powder 17GM PACKET PO SCH (09:40)
[2017-06-02] MEDS: Cyclobenzaprine 10 MG PO SCH ×3 (09:40→21:28)
[2017-06-02] MEDS ORDERED: BABY ASPIRIN 81 MG CHEW PO SCH (10:00)
[2017-06-02] MEDS ORDERED: AMIODARONE HCL 200 MG PO SCH (10:00)
[2017-06-02] MEDS ORDERED: Flonase NASAL NS SCH (10:00)
[2017-06-02] MEDS ORDERED: Cardizem CD 240 MG PO SCH (10:00)
--- NOTE | 2017-06-02 14:49 | XRAY ---
Indication: Back pain. Comparison: May 30, 2017. 3 views of the lumbar spine demonstrates progressive worsening T11 inferior endplate fracture with now approximately 50% height loss presumed acute. Stable osteopenia, double curvature scoliosis, multilevel degenerative spondylosis, and remote L3 superior endplate fracture.
--- NOTE | 2017-06-02 16:21 | XRAY ---
Indication: Back pain. No known injury. Sagittal and axial MRI lumbar spine performed without contrast using T1 and T2 weighted sequences. Comparison: None Same day lumbar radiograph documents 5 lumbar vertebral segments. Sagittal MRI images demonstrate normal lumbar lordosis with moderate double curvature scoliosis. Multilevel degenerative disc desiccation signal with mild disc space narrowing. L1-L2 opposing endplate degenerative discogenic signal changes, Modic type II. Remote appearing L3 superior endplate fracture with approximately 50% height loss. Acute to subacute T11 compression fracture with approximately 50% height loss but no spinal canal/foraminal stenosis. Conus medullaris terminates at the L1-L2 level. Incidental bilateral S2 perineural cysts, largest on the right measure 1.5 cm. Sagittal images through the T12-L1 level unremarkable. The L1-L2 level demonstrates mild annular disc osteophyte complex at the L1-L2 level mildly effacing the thecal sac and producing right foraminal stenosis. No disc herniation or canal stenosis. Axial images at the L2-L3 level demonstrates bilateral foraminal stenosis due to broad-based disc bulge. No central disc herniation or canal stenosis. Moderate bilateral degenerative facet hypertrophy slightly effaces the thecal sac. At the L3-L4 level, there is left foraminal narrowing due to broad-based disc bulge. No central disc herniation or spinal canal stenosis. Mild bilateral degenerative facet hypertrophy, left greater than right. At the L4-L5-S1 levels, there is no disc herniation, spinal canal, or foraminal stenosis. Mild bilateral degenerative facet hypertrophy. Impression: 1. Acute to subacute T11 compression fracture without spinal canal/foraminal stenosis. Also remote L3 endplate fracture. 2. Multilevel degenerative disc disease detailed level by level. 3. Negative disc herniation or spinal canal stenosis. 4. Incidental double curvature scoliosis and bilateral S2 perineural cysts.
[2017-06-02] MEDS: ENOXAPARIN SODIUM SQ SCH (19:58)
[2017-06-02] MEDS: OXYCODONE-ACETAMINOPHEN 10-325 PO PRN (19:58)
[2017-06-02] MEDS: xanAX 0.5 MG PO SCH (21:28)
[2017-06-02] MEDS: ZOCOR 20MG PO SCH (21:28)
[2017-06-02] MEDS: Lidoderm Patch 5% TOP SCH (21:29)
[2017-06-03] MEDS: Sodium Chloride 0.9% 1000 ML 1,000 ML IV SCH ×2 (03:42→15:12)
[2017-06-03 05:48] LABS: BASOPHIL % 0.9 % (0.0-0.4); Basophil (Absolute #) 0.05 (0-0.4); Eosinophil % 6.3 % (0.00-5.0); Eosinophil (Absolute #) 0.37 (0-0.5); Granulocyte Absolute (ANC) 3.34 (1.4-6.9); Granulocytes % 57.3 % (36.0-66.0); Hematocrit 41.5 % (35-47); Hemoglobin 13.2 gm/dl (12.0-16.0); Lymphocyte (Absolute #) 1.29 (1.0-4.6); Lymphocytes % 22.1 % (24.0-44.0); Mean Cell Volume 94.5 fl (78-100); Mean Corpuscular Hemoglobin 30.1 pg (26-32); Mean Corpuscular Hgb Concent. 31.8 g/dl (32-36); Monocyte (Absolute #) 0.78 (0.0-1.3); Monocytes % 13.4 % (0.0-12.0); Platelet Count 222 K/mm3 (150-450); Red Blood Count 4.39 M/mm3 (4.1-5.4); Red Cell Distribution Width 15.3 % (11.5-14.0); White Blood Count 5.8 K/mm3 (4.0-10.5)
[2017-06-03 05:57] LABS: ANION GAP 7.7 MEQ/L (5-15); Calcium 7.8 mg/dL (8.4-10.2); Creatinine 1 1.01 mg/dL (0.52-1.04)
[2017-06-03] MEDS ORDERED: MORPHINE SULFATE 2 MG INJ IV PRN (09:08)
--- NOTE | 2017-06-03 09:08 | PCM.NOTE ---
Date and Time: 06/03/17904 Subjective Assessment: MRI yesterday with acute/subacute T11 fracture. Pt thinks she may have done it in Mar when she fell. Pain was better yesterday then until her MRi then has been worse since then. Some relief with lidoderm patch. She cannot stand this pain. - Review of Systems Constitutional: No Fever Musculoskeletal: Back Pain Objective Exam General Appearance: mild distress, alert Neurologic Exam: cooperative Skin Exam: normal color, warm, dry, No rash Respiratory Exam: normal breath sounds, lungs clear, No crackles/rales, No rhonchi, No wheezing Cardiovascular Exam: regular rate/rhythm, normal heart sounds, No murmur Gastrointestinal/Abdomen Exam: soft, No tenderness Extremity Exam: No pedal edema, No swelling OBJECTIVE DATA Vital Signs: Vital Signs - 24 hr Temp Pulse Resp BP Pulse Ox 06/03/17 07:22 98.6 F 64 16 132/61 92 L 06/03/17 04:00 97.9 F 67 16 132/67 91 L 06/03/17 00:00 98.3 F 67 20 133/67 93 L 06/02/17 20:00 98 F 67 16 133/67 94 L 06/02/17 16:00 97.6 F 72 16 147/66 94 L 06/02/17 13:50 98 06/02/17 11:24 98.0 F 67 16 127/64 94 L Pain Assessment - Last Documented Pain Intensity 10 Pain Scale Used 0-10 Pain Scale,FLACC Intake and Output: Intake & Output 05/31/17 06/01/17 06/02/17 06/03/17 11:59 11:59 11:59 11:59 Intake Total 2440 3444 Balance 2440 3444 Weight 72.4 kg Lab Results: Lab Results-Last 24 Hours 06/03/17 06/03/17 Range/Units 04:00 05:10 WBC 5.8 (4.0-10.5) K/mm3 RBC 4.39 (4.1-5.4) M/mm3 Hgb 13.2 (12.0-16.0) gm/dl Hct 41.5 (35-47) % MCV 94.5 (78-100) fl MCH 30.1 (26-32) pg MCHC 31.8 L (32-36) g/dl RDW 15.3 H (11.5-14.0) % Plt Count 222 (150-450) K/mm3 MPV 10.0 H (6-9.5) fl Gran % 57.3 (36.0-66.0) % Eos # (Auto) 0.37 (0-0.5) Absolute Lymphs (auto) 1.29 (1.0-4.6) Absolute Monos (auto) 0.78 (0.0-1.3) Lymphocytes % 22.1 L (24.0-44.0) % Monocytes % 13.4 H (0.0-12.0) % Eosinophils % 6.3 H (0.00-5.0) % Basophils % 0.9 (0.0-0.4) % Absolute Granulocytes 3.34 (1.4-6.9) Basophils # 0.05 (0-0.4) Sodium 136 L (137-145) mmol/L Potassium 5.0 (3.5-5.1) mmol/L Chloride 106 (98-107) mmol/L Carbon Dioxide 27 (22-30) mmol/L Anion Gap 7.7 (5-15) MEQ/L BUN 26 H (7-17) mg/dL Creatinine 1.01 (0.52-1.04) mg/dL Estimated GFR 56.2 ML/MIN Glucose 94 (74-106) mg/dL Calcium 7.8 L (8.4-10.2) mg/dL Radiology Exams: Radiology Procedures Category Date Time Status LUMBAR LIMITED (2 OR 3 VIEWS) Routine Exams 06/02/17 14:40 Completed MRI L-SPINE WITHOUT CONTRAST [MRI] Routine Exams 06/02/17 09:02 Completed Multi-Disciplinary Progress Notes: Multi-Disciplinary Progress Notes 06/02/17 18:13 Physical Therapy Note by Jnue Leigh EVALUATION INITIATED TODAY AFTER AFTERNOON MRI. PATIENT FATIGUED. DID APPLY ICE TO LOW BACK - PATIENT PREFERRED RIGHT SIDE PLACEMENT. AFFORDED SOME RELIEF. SIGNIFICANT DEGENERATIVE CHANGES NOTED IN MRI. PATIENT REPORTS A FALL IN MARCH. THERE IS A PRESUMED ACUTE COMPRESSION OF T11. WILL ATTEMPT FUNCTIONAL MOBILITY ASSESSMENT TOMORROW. Initialized on 06/02/17 18:13 - END OF NOTE Assessment/Plan (1) Thoracic compression fracture Current Visit: Yes Status: Acute Qualifiers: Encounter type: subsequent encounter Fracture type: closed Assessment & Plan: Pain is still severe, increased since MRI. Will give some IV pain meds and hopefully with pain more under control will be able to transition to lidoderm patches (will increase the number) and percocet. She will need to f/u outpatient [facility] neurosurgery. Code(s): S22.000A - WEDGE COMPRESSION FRACTURE OF UNSP THORACIC VERTEBRA, INIT (2) UTI (urinary tract infection) Current Visit: Yes Status: Acute Onset Date: ~06/02/17 Qualifiers: Urinary tract infection type: acute cystitis Hematuria presence: with hematuria Qualified Code(s): N30.01 - Acute cystitis with hematuria Assessment & Plan: on IV rocephin. Code(s): N39.0 - URINARY TRACT INFECTION, SITE NOT SPECIFIED (3) Weakness Current Visit: Yes Status: Acute Onset Date: ~06/02/17 Code(s): R53.1 - WEAKNESS (4) Abnormal gait Current Visit: Yes Status: Acute Onset Date: ~06/02/17 Code(s): R26.9 - UNSPECIFIED ABNORMALITIES OF GAIT AND MOBILITY
[2017-06-03] MEDS: ROCEPHIN 1 Gm-D5w 50 ml Bag** 1 G/50 ML IVPB IV SCH (09:36)
[2017-06-03] MEDS: Miralax Powder 17GM PACKET PO SCH (09:45)
[2017-06-03] MEDS: Flonase NASAL NS SCH (09:50)
[2017-06-03] MEDS: Cyclobenzaprine 10 MG PO SCH ×3 (09:51→21:32)
[2017-06-03] MEDS: CLARITIN 10 MG PO SCH (09:52)
[2017-06-03] MEDS: ECOTRIN 81 MG PO SCH (09:52)
[2017-06-03] MEDS: Cordarone 200 MG PO SCH (09:53)
[2017-06-03] MEDS: Cardizem CD 120 MG PO SCH (09:54)
[2017-06-03] MEDS: Colace 100 MG PO SCH ×2 (09:54→21:34)
[2017-06-03] MEDS ORDERED: Lidoderm Patch 5% TOP SCH ×2 (10:00→20:00)
[2017-06-03] MEDS ORDERED: MORPHINE SULFATE 10 MG/ML IV PRN (12:00)
[2017-06-03] MEDS: OXYCODONE-ACETAMINOPHEN 10-325 PO PRN (12:57)
[2017-06-03] MEDS: ENOXAPARIN SODIUM SQ SCH (19:54)
[2017-06-03] MEDS: xanAX 0.5 MG PO SCH (21:33)
[2017-06-03] MEDS: ZOCOR 20MG PO SCH (21:34)
[2017-06-04] MEDS: Sodium Chloride 0.9% 1000 ML 1,000 ML IV SCH (01:53)
[2017-06-04] MEDS ORDERED: TORAdol 30 mg Injection IV PRN (08:26)
--- NOTE | 2017-06-04 08:31 | PCM.NOTE ---
Date and Time: 06/04/17827 Subjective Assessment: Pt still c/o 10/10 pain, in lower thoracic, lumbar spine and R SI joint. Worse with movement. She took IV morphine but it made her "loopy." Has 3 lidoderm patches on currently. denies paresthesias. She states her appetite is decreased. She is, however, tolerating po. Thinks she has been wheezing. - Review of Systems Constitutional: No Fever Musculoskeletal: Back Pain Objective Exam General Appearance: mild distress, alert Neurologic Exam: cooperative Skin Exam: normal color, warm, dry, No rash Eye Exam: eyes nml inspection Ears, Nose, Throat Exam: moist mucous membranes Respiratory Exam: normal breath sounds, lungs clear, No crackles/rales, No rhonchi, No wheezing Cardiovascular Exam: regular rate/rhythm, normal heart sounds, No murmur Extremity Exam: normal inspection, No pedal edema, No swelling Back Exam: other ([address] Mild ttp around T11-T12; R si joint ttp. plantar and dorsiflexion 5/5 bilat.) OBJECTIVE DATA Vital Signs: Vital Signs - 24 hr Temp Pulse Resp BP Pulse Ox 06/04/17 07:43 98.8 F 84 16 148/73 92 L 06/04/17 04:00 98.5 F 80 18 152/72 93 L 06/04/17 00:00 98.3 F 72 19 142/67 94 L 06/03/17 20:00 98.5 F 75 18 150/70 94 L 06/03/17 16:00 98.6 F 74 16 122/62 92 L 06/03/17 12:00 98.7 F 75 16 147/74 92 L Pain Assessment - Last Documented Pain Intensity 0 Pain Scale Used [facility] Intake and Output: Intake & Output 06/01/17 06/02/17 06/03/17 06/04/17 11:59 11:59 11:59 11:59 Intake Total 5090 3444 1476 Balance 2440 3444 1476 Weight 72.4 kg Radiology Exams: Radiology Procedures Category Date Time Status LUMBAR LIMITED (2 OR 3 VIEWS) Routine Exams 06/02/17 14:40 Completed MRI L-SPINE WITHOUT CONTRAST [MRI] Routine Exams 06/02/17 09:02 Completed Assessment/Plan (1) Thoracic compression fracture Current Visit: Yes Status: Acute Onset Date: ~06/03/17 Qualifiers: Encounter type: subsequent encounter Fracture type: closed Assessment & Plan: will consult Dr. Almonte, I am unable to get her pain controlled. Code(s): S22.000A - WEDGE COMPRESSION FRACTURE OF UNSP THORACIC VERTEBRA, INIT (2) UTI (urinary tract infection) Current Visit: Yes Status: Acute Onset Date: ~06/02/17 Qualifiers: Urinary tract infection type: acute cystitis Hematuria presence: with hematuria Qualified Code(s): N30.01 - Acute cystitis with hematuria Assessment & Plan: UCx from 05/30 susceptible to rocephin (current UCx neg). On IV rocephin day #4. Code(s): N39.0 - URINARY TRACT INFECTION, SITE NOT SPECIFIED (3) Weakness Current Visit: Yes Status: Acute Onset Date: ~06/02/17 Assessment & Plan: PT consulted Code(s): R53.1 - WEAKNESS (4) Abnormal gait Current Visit: Yes Status: Acute Onset Date: ~06/02/17 Code(s): R26.9 - UNSPECIFIED ABNORMALITIES OF GAIT AND MOBILITY
[2017-06-04] MEDS: ROCEPHIN 1 Gm-D5w 50 ml Bag** 1 G/50 ML IVPB IV SCH (09:55)
[2017-06-04 12:01] VITALS: BP 170/78; PULSE 86; O2SAT 91
--- NOTE | 2017-06-04 14:07 | PCM.DS ---
Discharge Summary Date of Admission: 06/01/17 12:55 Admitting Physician: GERTRUDE SCHNEIDER Consults: Consults on Case 06/04/17 08:27 Consult Ortho ROUTINE Primary Care Provider: AYDEE CORRAL Allergies Allergies pregabalin [From Lyrica] Allergy (Severe, Verified 06/01/17 13:28) Difficulty Breathing states "out of it,like crazy" hydrocodone bitartrate [From Vicodin] Adverse Reaction (Mild, Verified 06/01/17 13:28) constipation tramadol Adverse Reaction (Verified 06/01/17 13:29) confusion/ "goofy" Hospital Summary - Hospital Course Hospital Course: Pt was admitted through the ER with back pain exacerbation; she had fallen in March. She was admitted for pain control. XR the week before had been negative. XR the next morning non acute but MRI with acute vs subacute T11 fracture. Pt continued to have pain despite morphine IV and percocet po, lidocaine patches, and toradol x1. I spoke with DR. Almonte, he reviewed the films, then transferred pt out to [facility] for possible procedure this afternoon. - Vitals & Intake/Output Vital Signs: Vital Signs Temperature 98.4 F 06/04/17 12:00 Pulse Rate 86 06/04/17 12:00 Respiratory Rate 16 06/04/17 12:00 Blood Pressure 170/78 06/04/17 12:00 O2 Sat by Pulse Oximetry 91 L 06/04/17 12:00 Intake & Output: Intake & Output 06/02/17 06/03/17 06/04/17 06/05/17 11:59 11:59 11:59 11:59 Intake Total 2440 3444 1476 Balance 2440 3444 1476 Weight 72.4 kg - Lab Result Diagrams: 06/03/17 05:10 06/03/17 04:00 - Radiology Exams Ordered Rad Exams-Entire Visit: Radiology Procedures Category Date Time Status LUMBAR LIMITED (2 OR 3 VIEWS) Routine Exams 06/02/17 14:40 Completed - Procedures and Test Procedures and Tests throughout Hospitalization: Therapy Orders & Screens 06/02/17 09:03 PT Eval & Treat ( Order) ROUTINE Reason for Eval:: intractable back pain - may not be able to do therapy yet - MRI today Diagnosis: UTI/Dehydration Discharge Exam General Appearance: moderate distress, alert Neurologic Exam: oriented x 3, cooperative Skin Exam: normal color, warm, dry Eye Exam: other (strabismus on L as usual) Ears, Nose, Throat Exam: moist mucous membranes Neck Exam: normal inspection Respiratory Exam: normal breath sounds, lungs clear, No crackles/rales, No rhonchi, No wheezing Cardiovascular Exam: regular rate/rhythm, normal heart sounds, No murmur Extremity Exam: normal inspection, No pedal edema, No swelling Back Exam: other (ttp midline approx T11-T12. ttp R SI joint.) Final Diagnosis/Problem List - Final Discharge Diagnosis/Problem (1) Thoracic compression fracture Status: Acute Onset Date: ~06/03/17 Assessment & Plan: To Dr. Almonte for possible procedure, thank you. INtractable pain despite treatment here. Unable to get out of bed for PT. (2) UTI (urinary tract infection) Status: Acute Onset Date: ~06/02/17 Assessment & Plan: Had 3d of IV rocephin. UCx from 05/30 susceptible. Current UCx neg. (3) Weakness Status: Acute Onset Date: ~06/02/17 (4) Abnormal gait Status: Acute Onset Date: ~06/02/17 - Discharge Disposition: [facility] Condition: Stable Prescriptions: No Action Clotrimazole [Clotrimazole 3] 1 ea TOP Q12H PRN PRN PRN Reason: Itching Aspirin 81 gm Chew [Baby Aspirin 81 mg Chew] 81 mg PO DAILY Hydrocortisone/Iodoquinol/Aloe [Imwqabwnb-Zwjinozisz-Hqsi Sach] 1 ea TOP Q12H PRN PRN PRN Reason: Itching Amiodarone HCl 200 mg PO DAILY Alprazolam [Alprazolam Odt] 0.5 mg PO HS Pravastatin Sodium [Pravachol] 40 mg PO HS Calcium Carbonate/Vitamin D3 [Calcium 250+D Tablet] 1 ea PO DAILY Multivitamin [Daily Multivitamin] 1 ea PO DAILY Fluticasone Propionate [Flonase NASAL] 2 sprays IN DAILY Diltiazem HCl [Cartia Xt] 120 mg PO DAILY Loratadine [Loratadine] 10 mg PO DAILY Lidocaine [Lidocaine] 5 adh.patch HS Fexofenadine HCl 180 mg PO DAILY PRN PRN PRN Reason: Allergies Follow up with: AYDEE CORRAL [Primary Care Provider] - 06/11/17 10:00 am Forms: Ambulance Transport Record, Transfer Record Inter-Agency
== END 2017-06-04 11:50 | disposition short-term general hospital (02) | DRG 552 ==
LOC: ED 10:19 → OBSVTOIN 12:55 → MED SURG 12:55
PROVIDERS: ADMIT Family Medicine; ATTEND Family Medicine
DX: S22.000A Wedge compression fracture of unspecified thoracic vertebra, initial encounter for closed fracture (principal); E86.0 Dehydration; R53.1 Weakness; R26.9 Unspecified abnormalities of gait and mobility; I10 Essential (primary) hypertension; I50.9 Heart failure, unspecified; G89.29 Other chronic pain; M54.40 Lumbago with sciatica, unspecified side; N30.01 Acute cystitis with hematuria; M19.90 Unspecified osteoarthritis, unspecified site; F32.9 Major depressive disorder, single episode, unspecified; I48.91 Unspecified atrial fibrillation; Z79.899 Other long term (current) drug therapy
CPT/HCPCS: 36000; 36415; 72100; 72148; 80048; 81000; 85025; 87086; 96360; 96361; 96365; 96374; 96375; 97161; 97530; 99285; P9612; 99284; J0696; J1650; J1885; J2270; J2405; A9270-GY